=== PATIENT | female | born 1945 | race Caucasian/White ===

== ENCOUNTER 2016-08-17 16:34 | Emergency (ER) | payer OTHER, MEDICARE ==
--- NOTE | 2016-08-17 16:50 | PDOC ---
History of Present Illness - General History Source: Patient Exam Limitations: No Limitations - History of Present Illness Initial Comments: 08/17/16 16:50 The patient is a 71 year old female, with a significant past medical history of a-fib, NIDDM, and HTN, who presents to the emergency department with left ankle pain since monday. She reports walking on monday when she noticed the onset of ankle pain. She notes since having ankle pain with weight bearing activities. She denies any [id number] medication. She denies any history of falls or twisting her ankle. She denies recent fevers, chills, headache or dizziness. She denies recent nausea, vomit, diarrhea or constipation. Allergies: As per Nursing Notes. Past surgical history: None reported Social history: Nonsmoker. Denies EtOH and drug use. <Henry Cox - Last Filed: 08/17/16 16:50> - General History Source: Patient, Old Records Exam Limitations: No Limitations <Irene Mckenzie - Last Filed: 08/17/16 16:54> - General Chief Complaint: Pain Stated Complaint: LEFT ANKLE PAIN Time Seen by Provider: 08/17/16 16:37 Past History <Henry Cox - Last Filed: 08/17/16 16:50> - Past Medical History Anemia: Yes (IRON INFUSION 03/2014) Asthma: No Cancer: No Cardiac Disorders: Yes (atrial fibrillation) CVA: No COPD: Yes (COPD) CHF: No Dementia: No Diabetes: Yes (NIDDM) GI Disorders: No Disorders: No HTN: Yes Hypercholesterolemia: No Liver Disease: Yes (ELEVATED LIVER FUNCTION AT TIMES) Seizures: No Thyroid Disease: No - Surgical History Abdominal Surgery: No Appendectomy: No Cardiac Surgery: No Cholecystectomy: No Lung Surgery: No Neurologic Surgery: No Orthopedic Surgery: No - Immunization History Td Vaccination: No TDAP Vaccination: No Immunization Up to Date: No - Psycho/Social/Smoking Cessation Hx Anxiety: No Suicidal Ideation: No Smoking Status: No Smoking History: Former smoker Years of Tobacco Use: 0 Have you smoked in the past 12 months: No Number of Cigarettes Smoked Daily: 0 If you are a former smoker, when did you quit?: 15 YRS AGO Hx Alcohol Use: No (SOCIAL) Drug/Substance Use Hx: No Substance Use Type: Alcohol <Irene Mckenzie - Last Filed: 08/17/16 16:54> - Past Medical History Allergies/Adverse Reactions: Allergies Allergy/AdvReac Type Severity Reaction Status Date / Time amiodarone Allergy Intermediate Rash Verified 08/17/16 16:35 amlodipine Allergy Intermediate Hives Verified 08/17/16 16:35 apixaban [From Eliquis] Allergy Intermediate Rash Verified 08/17/16 16:35 celecoxib [From Celebrex] Allergy Intermediate Hives Verified 08/17/16 16:35 Home Medications: Ambulatory Orders Metformin HCl [Glucophage -] 500 mg PO PRN PRN 02/09/13 Metoprolol Tartrate [Lopressor -] 100 mg PO BID 02/09/13 Valsartan [Diovan] 320 mg PO HS 02/09/13 Warfarin Sodium [Coumadin] 2 mg PO DAILY 02/09/13 Hydralazine HCl 75 mg PO BID 04/30/15 Dicyclomine HCl [Bentyl -] 20 mg PO Q6H 08/17/16 Diltiazem HCl [Diltiazem 24Hr Cd] 240 mg PO DAILY 08/17/16 Review of Systems - Review of Systems Able to Perform ROS?: Yes Comments:: 08/17/16 16:50 CONSTITUTIONAL: Absent: fever, no chills, no fatigue EYES: Absent: visual changes ENT: Absent: ear pain, no sore throat CARDIOVASCULAR: Absent: chest pain, no palpitations RESPIRATORY: Absent: cough, no SOB GI: Absent: abdominal pain, no nausea, no vomiting, no constipation, no diarrhea GENITOURINARY: Absent: dysuria, no frequency, no hematuria MUSKULOSKELETAL: +left ankle pain. Absent: back pain, no arthralgia, no myalgia SKIN: Absent: rash NEURO: Absent: headache <Henry Cox - Last Filed: 08/17/16 16:50> *Physical Exam - Physical Exam Comments: 08/17/16 16:50 GENERAL: Well developed, well nourished. Awake and alert. No acute distress. MUSCULOSKELETAL Normal range of motion at all joints. No CVA tenderness. EXTREMITIES: Tenderness to the left distal lateral malleolus. No erythema. No gross bony deformity. No cyanosis. No clubbing. SKIN: Warm and dry. Normal capillary refill. No rashes. No jaundice. <Henry Cox - Last Filed: 08/17/16 16:50> Medical Decision Making - Medical Decision Making 08/17/16 16:48 71-year-old female with history of hypertension presents to the emergency department with atraumatic left ankle pain with full range of motion noted and no sensory or motor deficits. She is able to bear full weight on the extremity and has no gait deficit. Diagnosis ankle sprain versus strain. Plan: 1. Gray wrap 2. Tylenol or Motrin as needed for pain 3. Follow-up with PCP as needed 4. Return to the emergency department if symptoms persist, worsen, or new symptoms arise. <Irene Mckenzie - Last Filed: 08/17/16 16:54> *DC/Admit/Observation/Transfer - Attestations Scribe Attestion: 08/17/16 16:50 Documentation prepared by Henry Cox, acting as medical technologist chemistry for Irnee Mckenzie MD. <Henry Cox - Last Filed: 08/17/16 16:50> - Discharge Dispostion Admit: No - Attestations Physician Attestion: 08/17/16 16:47 I, Dr. Irene Mckenzie, attest that the scribes documentation that appears above has been prepared under my direction and personally reviewed by me in its entirety. I confirmed that the note above accurately reflects all work, treatment, procedures, and medical decision-making performed by me. <Irene Mckenzie - Last Filed: 08/17/16 16:54> Diagnosis at time of Disposition: Left foot pain - Discharge Dispostion Disposition: HOME Condition at time of disposition: Stable - Patient Instructions Printed Discharge Instructions: DI for Ankle Sprain Additional Instructions: follow-up with primary care physician. Take tylenol or motrin for the pain. Ice to the affected areas. Return to the ED if symptoms persist, worsen or new symptoms arise.
[2016-08-17 17:03] VITALS: BP 155/91; PULSE 77; TEMP 98.1; BMI 26.6
== END 2016-08-17 17:05 | disposition home or self-care (01) ==
LOC: FER 16:34
DX: M79.672 Pain in left foot (principal); I48.91 Unspecified atrial fibrillation; E11.9 Type 2 diabetes mellitus without complications; I10 Essential (primary) hypertension; J44.9 Chronic obstructive pulmonary disease, unspecified; R94.5 Abnormal results of liver function studies; Z87.891 Personal history of nicotine dependence; X58.XXXA Exposure to other specified factors, initial encounter; Y93.9 Activity, unspecified; Y92.9 Unspecified place or not applicable
CPT/HCPCS: 99282-25

== ENCOUNTER 2017-02-23 21:56 | Emergency (ER) | payer OTHER, MEDICARE ==
[2017-02-23 22:06] VITALS: BP 152/96; PULSE 87; TEMP 97.7; BMI 27.4
--- NOTE | 2017-02-23 22:33 | PDOC ---
History of Present Illness - General Chief Complaint: Pain, Acute Stated Complaint: LEFT ANKLE/FOOT PAIN Time Seen by Provider: 02/23/17 22:00 History Source: Patient Exam Limitations: No Limitations - History of Present Illness Initial Comments: 02/23/17 22:38 This is a 71-year-old female who comes in complaining of left foot pain. Patient denies any trauma or injury to the pain. Patient said that her left foot has been painful and swollen for 1 day. Patient denies any chest pain, shortness of breath, recent injury or travel. Patient is on Coumadin for atrial fibrillation. PAST MEDICAL HISTORY: no significant history PAST SURGICAL HISTORY: no significant history FAMILY HISTORY: no pertinant history SOCIAL HISTORY: Pt lives with family and is employed. MEDICATIONS: reviewed ALLERGIES: As per nursing notes Review of Systems General: No fevers or chills, no weakness, no weight loss HEENT: No change in vision. No sore throat,. No ear pain CardioVascular: No chest pain or shortness of breath Respiratory:No cough, or wheezing. Gastrointestinal: no nausea, vomitting, diarrhea or constipation, No rectal bleeding Genitourinary: No dysuria, hematuria, or frequency Musculoskeletal: Left foot and leg swelling as per history of present illness Neurologic: No headache, vertigo, dizziness or loss of consciousness Psychiatric: nor depression Skin: No rashes or easy bruising Endocrine: no increased thirst or abnormal weight change Allergic: no skin or latex allergy All other systems reviewed and normal GENERAL: The patient is awake, alert, and fully oriented, in no acute distress. HEAD: Normal with no signs of trauma. EYES: Pupils equal, round and reactive to light, extraocular movements intact, sclera anicteric, conjunctiva clear. EXTREMITIES: Left lower extremity there is a mild amount of edema extending to approximately the midcalf. There is no bony tenderness, there is full range of motion of the knee ankle and foot without discomfort. There is a small increase in swelling over the lateral malleolus however there is no associated ecchymosis or tenderness. Neurovascular distal is intact NEUROLOGICAL: Normal speech, normal gait. PSYCH: Normal mood, normal affect. SKIN: Warm, Dry, normal turgor, no rashes or lesions noted. 02/23/17 22:40 02/23/17 23:49 Ultrasound Doppler negative for any acute pathology Assessment and plan: This is a 71-year-old female with left leg and foot pain and swelling. Patient had ultrasound Doppler that was negative. Patient does have some moderate more swelling over the lateral malleolus and most likely has a ligamentous injury to the ankle. Patient given Gray wrap and told to follow-up with her primary care doctor. 02/23/17 23:51 Past History - Past Medical History Allergies/Adverse Reactions: Allergies Allergy/AdvReac Type Severity Reaction Status Date / Time amiodarone Allergy Intermediate Rash Verified 08/17/16 16:35 amlodipine Allergy Intermediate Hives Verified 08/17/16 16:35 apixaban [From Eliquis] Allergy Intermediate Rash Verified 08/17/16 16:35 celecoxib [From Celebrex] Allergy Intermediate Hives Verified 08/17/16 16:35 Home Medications: Ambulatory Orders Metoprolol Tartrate [Lopressor -] 100 mg PO BID 02/09/13 Warfarin Sodium [Coumadin] 2 mg PO DAILY 02/09/13 Hydralazine HCl 75 mg PO BID 04/30/15 Dicyclomine HCl [Bentyl -] 20 mg PO Q6H 08/17/16 Diltiazem HCl [Diltiazem 24Hr Cd] 240 mg PO DAILY 08/17/16 Omeprazole 20 mg PO DAILY 02/23/17 Anemia: Yes (IRON INFUSION 03/2014) Asthma: No Cancer: No Cardiac Disorders: Yes (atrial fibrillation) CVA: No COPD: Yes (COPD) CHF: No Dementia: No Diabetes: Yes (NIDDM) GI Disorders: No Disorders: No HTN: Yes Hypercholesterolemia: No Liver Disease: Yes (ELEVATED LIVER FUNCTION AT TIMES) Seizures: No Thyroid Disease: No - Surgical History Abdominal Surgery: No Appendectomy: No Cardiac Surgery: No Cholecystectomy: No Lung Surgery: No Neurologic Surgery: No Orthopedic Surgery: No - Immunization History Td Vaccination: No TDAP Vaccination: No Immunization Up to Date: No - Psycho/Social/Smoking Cessation Hx Anxiety: No Suicidal Ideation: No Smoking Status: No Smoking History: Former smoker Years of Tobacco Use: 0 Have you smoked in the past 12 months: No Number of Cigarettes Smoked Daily: 0 If you are a former smoker, when did you quit?: 15 YRS AGO Information on smoking cessation initiated: No Hx Alcohol Use: No Drug/Substance Use Hx: No Substance Use Type: Alcohol *Physical Exam - Vital Signs Last Vital Signs Temp Pulse Resp BP Pulse Ox 97.7 F 87 16 152/96 94 L 02/23/17 21:57 02/23/17 21:57 02/23/17 21:57 02/23/17 21:57 02/23/17 21:57 *DC/Admit/Observation/Transfer Diagnosis at time of Disposition: Left foot pain - Discharge Dispostion Disposition: HOME Condition at time of disposition: Good Admit: No - Patient Instructions Additional Instructions: Tylenol or Motrin as needed for the pain Wear the Gray wrap for comfort. Follow-up with your doctor if not improved by next week
[2017-02-23] MEDS ORDERED: ACETAMINOPHEN 325 MG TABLET (FP) PO ONE (23:38)
[2017-02-23] MEDS ORDERED: ACETAMINOPHEN 325 MG TABLET (FP) ONE (23:45)
== END 2017-02-23 23:59 | disposition home or self-care (01) ==
LOC: FER 21:56
DX: M79.672 Pain in left foot (principal); Z87.891 Personal history of nicotine dependence; I10 Essential (primary) hypertension; R79.89 Other specified abnormal findings of blood chemistry; J44.9 Chronic obstructive pulmonary disease, unspecified; I48.91 Unspecified atrial fibrillation; E11.9 Type 2 diabetes mellitus without complications
CPT/HCPCS: 93971-TC; 99281-25

== ENCOUNTER 2019-04-16 13:35 | Emergency (ER) | payer OTHER, MEDICARE ==
[2019-04-16 13:41] VITALS: TEMP 98.1; BMI 28.3
[2019-04-16] MEDS ORDERED: KETOROLAC TROMETHAMINE 60 MG/2 ML VIAL IM ONE (13:43)
[2019-04-16] MEDS ORDERED: CYCLOBENZAPRINE HCL 10 MG TABLET (FP) PO ONE (13:43)
--- NOTE | 2019-04-16 13:44 | PDOC ---
History of Present Illness - General Chief Complaint: Injury Stated Complaint: LEFT LEG PAIN Time Seen by Provider: 04/16/19 13:43 History Source: Patient Exam Limitations: No Limitations - History of Present Illness Initial Comments: 04/16/19 13:48 73y F hx of anemia, afib, copd, iddm, htn, presents with complaint of L leg pain. Pt was in her usual state of health until just prior to presentation when she was coming down from a ladder - she was about 3 steps up, stepped lower with her L leg and felt a sudden sharp pain on the posterior aspect of her L knee that radiated down her L leg. Pt rula any back pain, falls, injuries, hip pain, thigh pain, numbness/tingling/weakness. Pt notse it hurts to move and to walk. Pt did not fall. She has not taken any pain medication yet. ROS Musculskelatal - +L leg pain no reported back pain, joint swelling skin - no reported bruising, erythema, rash neurological: no reported numbness, focal weakness, tingling hematologic: no reported easy bruising, easy bleeding Physicial Exam: General: appears uncomfortbale, especially when moving her L knee MSK: N ofocal bony tenderness to femur, patella, fibrula/tibia, no significant pain on passive ROM, focal tenderness to the semimebranous/distal end of [place] on L knee, knee flexion function intact, +pain with active rom suspect muscle strain vs ligamentous injury no focal bony tendernss to suggest need for xray will give toradol/flexeril will reassess may need to use knee immobilizer/crutches if pain does not significantly improved ortho fu as outpatient. Past History - Past Medical History Allergies/Adverse Reactions: Allergies Allergy/AdvReac Type Severity Reaction Status Date / Time amiodarone Allergy Intermediate Rash Verified 04/16/19 13:41 amlodipine Allergy Intermediate Hives Verified 04/16/19 13:41 apixaban [From Eliquis] Allergy Intermediate Rash Verified 04/16/19 13:41 celecoxib [From Celebrex] Allergy Intermediate Hives Verified 04/16/19 13:41 Home Medications: Ambulatory Orders Cyclobenzaprine HCl [Flexeril -] 10 mg PO BID PRN #21 tablet 04/16/19 Diltiazem Cd [Cardizem Cd -] 240 mg PO DAILY 04/16/19 Doxazosin Mesylate 2 mg PO HS 04/16/19 Hydralazine HCl 25 mg PO TID 04/16/19 Metoprolol Tartrate 100 mg PO BID 04/16/19 Potassium Chloride 20 meq PO DAILY 04/16/19 Warfarin Na [Coumadin] 3 mg PO DAILY 04/16/19 Anemia: Yes (IRON INFUSION 03/2014) Asthma: No Cancer: No Cardiac Disorders: Yes (atrial fibrillation) CVA: No COPD: Yes (COPD) CHF: No Dementia: No Diabetes: Yes (NIDDM) GI Disorders: No Disorders: No HTN: Yes Hypercholesterolemia: No Liver Disease: Yes (ELEVATED LIVER FUNCTION AT TIMES) Seizures: No Thyroid Disease: No - Surgical History Abdominal Surgery: No Appendectomy: No Cardiac Surgery: Yes (CARDIAC ABLATION) Cholecystectomy: No Lung Surgery: No Neurologic Surgery: No Orthopedic Surgery: No - Immunization History Td Vaccination: No TDAP Vaccination: No Immunization Up to Date: No - Psycho Social/Smoking Cessation Hx Smoking Status: No Smoking History: Former smoker Years of Tobacco Use: 0 Have you smoked in the past 12 months: No Number of Cigarettes Smoked Daily: 0 If you are a former smoker, when did you quit?: 15 YRS AGO Information on smoking cessation initiated: No Hx Alcohol Use: (social) Drug/Substance Use Hx: No Substance Use Type: Alcohol *Physical Exam - Vital Signs Last Vital Signs Temp Pulse Resp BP Pulse Ox 98.1 F 88 20 188/101 H 97 04/16/19 13:35 04/16/19 13:35 04/16/19 13:35 04/16/19 13:35 04/16/19 13:35 Medical Decision Making - Medical Decision Making 04/16/19 16:04 pt feeling better ambulatory without significant discomfort will dc with pmd fu Discharge - Discharge Information Problems reviewed: Yes Clinical Impression/Diagnosis: Knee pain, left Qualifiers: Chronicity: acute Qualified Code(s): M25.562 - Pain in left knee Condition: Improved Disposition: HOME - Admission No - Additional Discharge Information Prescriptions: Cyclobenzaprine HCl [Flexeril -] 10 mg PO BID PRN #21 tablet PRN Reason: Pain - Follow up/Referral Referrals: Ward Strong MD [Staff Physician] - - Patient Discharge Instructions Patient Printed Discharge Instructions: DI for Knee Pain Additional Instructions: Return to the emergency department immediately with ANY new, persistent or worsening symptoms. Take Motrin or Tylenol as needed for your pain, rest. You MUST call and follow up with your doctor in 3-4 days for further evaluation of your symptoms. Results were discussed with you. Please make sure your doctor reviews the results of your emergency evaluation. Your Emergency Department visit is not complete without a follow up with your doctor. Print Language: SUDANESE - Post Discharge Activity Work/Back to School Note: Back to Work
[2019-04-16] MEDS ORDERED: KETOROLAC TROMETHAMINE 60 MG/2 ML VIAL ONE (13:45)
[2019-04-16] MEDS ORDERED: CYCLOBENZAPRINE HCL 10 MG TABLET (FP) ONE (13:46)
[2019-04-16 16:16] VITALS: BP 155/88; PULSE 70
== END 2019-04-16 16:16 | disposition home or self-care (01) ==
LOC: FER 13:35
PROC: 3E0233Z Introduction of Anti-inflammatory into Muscle, Percutaneous Approach (ICD-10-PCS; principal; 2019-04-16)
DX: M25.562 Pain in left knee (principal); Z87.891 Personal history of nicotine dependence; Z88.8 Allergy status to other drugs, medicaments and biological substances; I48.91 Unspecified atrial fibrillation; J44.9 Chronic obstructive pulmonary disease, unspecified; E11.9 Type 2 diabetes mellitus without complications; I10 Essential (primary) hypertension
CPT/HCPCS: 96372; 99282-25

== ENCOUNTER 2020-05-29 15:36 | Emergency (ER) | payer OTHER, MEDICARE ==
[2020-05-29] MEDS ORDERED: DIPHTH,PERTUSS(ACELL),TET 0.5 ML DISP.SYRIN IM ONE ×2 (15:49→16:01)
[2020-05-29 16:22] VITALS: BP 135/58; PULSE 68; TEMP 98.6; BMI 29.9
== END 2020-05-29 16:15 | disposition home or self-care (01) ==
LOC: FER 15:36
PROC: 3E0234Z Introduction of Serum, Toxoid and Vaccine into Muscle, Percutaneous Approach (ICD-10-PCS; principal; 2020-05-29)
DX: S91.331A Puncture wound without foreign body, right foot, initial encounter (principal)
CPT/HCPCS: 90715; 99284-25

== ENCOUNTER 2020-08-12 23:26 | Emergency (ER) | payer OTHER, MEDICARE ==
[2020-08-12] MEDS ORDERED: ALBUTEROL SO4 2.5/IPRATROPIUM 0.5 INH SOL 3 ML VIAL.NEB. NEB ONE ×2 (23:34→23:42)
[2020-08-12] MEDS ORDERED: predniSONE 20 MG TABLET (UD) PO ONE (23:34)
[2020-08-12 23:40] VITALS: BP 136/76; PULSE 72; TEMP 98.6; BMI 25.8
[2020-08-12] MEDS ORDERED: predniSONE 20 MG TABLET (UD) ONE (23:41)
== END 2020-08-13 00:21 | disposition home or self-care (01) ==
LOC: FER 23:26
PROC: 3E0F7GC Introduction of Other Therapeutic Substance into Respiratory Tract, Via Natural or Artificial Opening (ICD-10-PCS; principal; 2020-08-12)
DX: J44.1 Chronic obstructive pulmonary disease with (acute) exacerbation (principal)
CPT/HCPCS: 71045-TC-FY; 99284-25; C9803; U0003

== ENCOUNTER 2024-05-07 01:18 | Observation (INO) | payer OTHER, MEDICARE ==
[2024-05-07 01:48] VITALS: RESP 21
[2024-05-07] MEDS: ONDANSETRON 4 MG/2 ML VIAL IVPUSH ONE (02:04)
[2024-05-07] MEDS: SODIUM CHLORIDE 250 ML IV STA (02:04)
[2024-05-07] MEDS ORDERED: ACETAMINOPHEN INJECTION 100 ML ONE (02:41)
[2024-05-07 02:42] LABS: BASO % 0.3 % (0-2.0); EOS % 0.9 % (0-4.5); HEMATOCRIT 45.4 % (32.4-45.2); HEMOGLOBIN 15.3 GM/dL (10.7-15.3); MCH 27.4 pg (25.7-33.7); MCHC 33.7 g/dl (32.0-36.0); MEAN CELL VOLUME 81.3 fl (80-96); MEAN PLT VOLUME 8.3 fl (7.5-11.1); MONO % 5.6 % (3.8-10.2); NEUT % 89.2 % (42.8-82.8); PLATELET COUNT 156 10^3/uL (134-434); RBC 5.58 M/mm3 (3.60-5.2); RDW 14.6 % (11.6-15.6); WHITE BLOOD COUNT 6.8 K/mm3 (4.0-10.0)
[2024-05-07 02:45] LABS: EPI CELLS 2 /uL (0-25.1); HYALINE CASTS 0 /uL (0-3.1); URINE APPEARANCE CLEAR; URINE BACTERIA 546 /uL (0-1359); URINE BILIRUBIN NEGATIVE (NEGATIVE); URINE COLOR YELLOW; URINE GLUCOSE (UA) 3+ (NEGATIVE); URINE KETONE NEGATIVE (NEGATIVE); URINE LEUK ESTERASE NEGATIVE (NEGATIVE); URINE NITRITE NEGATIVE (NEGATIVE); URINE PROTEIN TRACE (NEGATIVE); URINE RBC 15 /uL (0-23.9); URINE UROBILINOGEN 0.2 mg/dL (0.2-1.0)
[2024-05-07] MEDS: ACETAMINOPHEN 1000 MG/100 ML BAG IVPB ONE (02:50)
[2024-05-07 02:56] LABS: INR 1.06 (0.83-1.09); PROTHROMBIN TIME (PATIENT) 12.2 SEC (9.7-13.0)
[2024-05-07 03:01] LABS: POTASSIUM 3.6 mmol/L (3.5-5.1)
[2024-05-07 03:04] LABS: ALBUMIN 3.8 g/dl (3.4-5.0); BLOOD UREA NITROGEN 20.8 mg/dL (7-18)
[2024-05-07 03:10] LABS: BILIRUBIN,TOTAL 0.5 mg/dL (0.2-1); TOT PROT 6.9 g/dl (6.4-8.2)
[2024-05-07 08:42] VITALS: BMI 26.4
[2024-05-07 09:11] VITALS: BP 127/84; PULSE 75; TEMP 98.1
[2024-05-07] MEDS: PANTOPRAZOLE 20 MG TABLET PO SCH (09:17)
[2024-05-07] MEDS: EZETIMIBE 10 MG TABLET (FP) PO SCH (09:17)
[2024-05-07] MEDS: ACETAMINOPHEN 325 MG TABLET (FP) PO PRN (11:10)
== END 2024-05-07 12:33 | disposition home or self-care (01) ==
LOC: FER 01:18 → FM/S 06:37
PROVIDERS: ADMIT Internal Medicine
PROC: 3E033NZ Introduction of Analgesics, Hypnotics, Sedatives into Peripheral Vein, Percutaneous Approach (ICD-10-PCS; principal; 2024-05-07)
PROC: 3E033GC Introduction of Other Therapeutic Substance into Peripheral Vein, Percutaneous Approach (ICD-10-PCS; 2024-05-07)
PROC: 3E0337Z Introduction of Electrolytic and Water Balance Substance into Peripheral Vein, Percutaneous Approach (ICD-10-PCS; 2024-05-07)
DX: U07.1 COVID-19 (principal); I48.91 Unspecified atrial fibrillation; I10 Essential (primary) hypertension; J44.9 Chronic obstructive pulmonary disease, unspecified; E78.5 Hyperlipidemia, unspecified; Z88.8 Allergy status to other drugs, medicaments and biological substances; R94.5 Abnormal results of liver function studies; E11.9 Type 2 diabetes mellitus without complications; K21.9 Gastro-esophageal reflux disease without esophagitis
CPT/HCPCS: 0241U-QW; 36415; 71045-TC-FY; 80053; 81003; 84484; 85025; 85610; 93005; 96361; 96374; 96375; 99285-25; G0378; J0131